=== PATIENT | female | born 1995 | race African-American/Black ===

== ENCOUNTER 2017-11-11 20:25 | Emergency (ER) | payer OTHER ==
[~2017-11-11] VITALS: Ht 167.6 cm; Wt 86.4 kg
[2017-11-11] MEDS ORDERED: IBUPROFEN 600 MG TABLET PO ONE (22:30)
[2017-11-11 23:26] VITALS: BP 114/80
== END 2017-11-11 23:29 | disposition home or self-care (01) ==
LOC: EMS 20:29
DX: S63.652A Sprain of metacarpophalangeal joint of right middle finger, initial encounter (principal); Y04.0XXA Assault by unarmed brawl or fight, initial encounter; Y93.89 Activity, other specified; Y92.89 Other specified places as the place of occurrence of the external cause; Y99.8 Other external cause status
CPT/HCPCS: 99284